=== PATIENT | female | born 1950 | race Caucasian/White ===

== ENCOUNTER 2017-02-13 17:07 | Emergency (ER) | payer BC ==
[2017-02-13] MEDS ORDERED: Aspirin Low Dose CHEW TAB* 81 MG PO ONE (18:06)
--- NOTE | 2017-02-13 18:09 | ED ---
HPI Chest Pain - HPI Summary HPI Summary: Pt here w/ flu-like sx since Thursday and chest pain on/off over past few weeks. Chest pain is intermittent over Lt chest - feels like squeezing/pinches at times - sometimes worse w/ lying flat. Denies associated sx of jaw pain, nausea , sweating however since Thursday she has had fatigue, decreased appetite, fever , general body aches and continues to have Lt sided chest pain. No SOB. Has had some cough and sneezing but this is improving - just feels wiped out and exhausted. Has not been eating or drinking much as she has not felt well. No h/ o cardiac issues and overall healthy person. Admits she did not get her influenza vaccine this year as last year she had a reaction where she had B/L breast lymphadenopathy w/ rash and felt exhausted for a 1 day. NOTE: she gardens in the summer - has had tick bites and tx'd w/ doxycycline - no EM rash, no previous dx of Lyme - History of Current Complaint Chief Complaint: EDGeneral Time Seen by Provider: 02/13/17 17:43 Hx Obtained From: Patient, Family/Shop Lead - Pain Intensity: 4 - Allergy/Home Medications Allergies/Adverse Reactions: Allergies Allergy/AdvReac Type Severity Reaction Status Date / Time No Known Allergies Allergy Verified 08/17/12 15:54 Home Medications: Home Medications PARoxetine HCL TAB* [Paxil TAB*] 10 mg PO DAILY 02/13/17 [History Confirmed ] traZODone TAB* [Desyrel TAB*] 50 mg PO BEDTIME 02/13/17 [History Confirmed 02/13] PMH/Surg Hx/FS Hx/Imm Hx Previously Healthy: Yes Endocrine/Hematology History: Reports: Other Endocrine/Hematological Disorders - has routine breast exams - no issues to report Denies: Hx Diabetes, Hx Systemic Lupus Erythematosus, Hx Thyroid Disease, Hx Anemia, Autoimmune Disease Cardiovascular History: Denies: Hx Aneurysm, Hx Atrial Fibrillation, Hx Congenital Heart Disease, Hx Congestive Heart Failure, Hx Coronary Artery Disease, Hx Hypertension, Hx Myocardial Infarction, Hx Rheumatic Fever Respiratory History: Denies: Hx Asthma, Hx Pulmonary Embolism GI History: Denies: Hx Gastroesophageal Reflux Disease, Hx Ulcer Musculoskeletal History: Reports: Other Musculoskeletal History - Proximal fx to Lt humerus - has chronic achiness here - Surgical History Surgery Procedure, Year, and Place: 8-10 years ago right breast benign fibroglandular tissue removed. 40 years ago fibroadenoma removed right breast - Immunization History Immunizations Up to Date: Yes Infectious Disease History: No Infectious Disease History: Denies: Traveled Outside the [place] in Last 30 Days - Family History Known Family History: Positive: None - Social History Occupation: Employed Full-time - [employer] Lives: With Family Alcohol Use: None Hx Substance Use: No Substance Use Type: Reports: None Hx Tobacco Use: No Smoking Status (MU): Never Smoked Tobacco Review of Systems Positive: Fever, Chills, Fatigue Eyes: Negative Negative: Photophobia, Blurred Vision, Diplopia, Drainage, Erythema Negative: Sore Throat, Ear Ache, Nasal Discharge Positive: Chest Pain. Negative: Palpitations Positive: Cough. Negative: Shortness Of Breath Gastrointestinal: Other - decreased appetite Negative: Abdominal Pain, Vomiting, Diarrhea, Nausea Genitourinary: Negative Negative: burning, dysuria, discharge, frequency, flank pain, hematuria, incontinence, pain, urgency Positive: Arthralgia, Myalgia. Negative: Decreased ROM, Edema Negative: Rash, Bruising Positive: Weakness - generalized. Negative: Headache, Paresthesia, Numbness, Syncope, Slurred Speech Psychological: Normal All Other Systems Reviewed And Are Negative: Yes Physical Exam Triage Information Reviewed: Yes Vital Signs On Initial Exam: Initial Vitals Temp Pulse Resp BP Pulse Ox 98.5 F 97 18 102/60 95 02/13/17 17:21 02/13/17 17:21 02/13/17 17:21 02/13/17 17:21 02/13/17 17:21 Vital Signs Reviewed: Yes Appearance: Positive: Well-Appearing - appears mildly fatigued, No Pain Distress , Thin Skin: Positive: Warm, Dry - rash Head/Face: Positive: Normal Head/Face Inspection Eyes: Positive: Normal, EOMI, OVIDIO, Conjunctiva Clear - anicteric sclera. Negative: Conjunctiva Inflammed, Discharge ENT: Positive: Normal ENT inspection, Hearing grossly normal, Pharynx normal, TMs normal, Uvula midline. Negative: Nasal congestion, Nasal drainage, Tonsillar swelling, Tonsillar exudate, Trismus, Muffled voice, Sinus tenderness Neck: Positive: Supple, Nontender, No Lymphadenopathy Respiratory/Lung Sounds: Positive: Clear to Auscultation, Breath Sounds Present , Other - no axillary, humeral, thoracic or breast LN's palpated. Negative: Rales, Rhonchi, Wheezes Cardiovascular: Positive: Normal, RRR, Pulses are Symmetrical in both Upper and Lower Extremities, S1, S2. Negative: Murmur, Rub, Leg Edema Left, Leg Edema Right Abdomen Description: Positive: Nontender, No Organomegaly, Soft. Negative: CVA Tenderness (R), CVA Tenderness (L) Bowel Sounds: Positive: Present Musculoskeletal: Positive: Strength/ROM Intact, Other - Lt chest with mild TTP Neurological: Positive: Normal, Sensory/Motor Intact, Alert, Oriented to Person Place, Time, CN Intact II-III, Reflexes Intact Psychiatric: Positive: Normal - Guillaume Coma Scale Coma Scale Total: 15 Diagnostics - Vital Signs Vital Signs Temp Pulse Resp BP Pulse Ox 02/13/17 17:21 98.5 F 97 18 102/60 95 - Laboratory Result Diagrams: 02/13/17 17:50 02/13/17 17:50 Lab Statement: Any lab studies that have been ordered have been reviewed, and results considered in the medical decision making process. Re-Evaluation - Re-Evaluation First Eval Change: Improved - reduced arthralgias and no retun of fever w/ ASA Chest Pain Course/Dx - Course Course Of Treatment: Pt presents w/ flu-like sx since Thursday - general achiness , fatigue, mild URI sx. Here to confirm if she has flu or not. Also reports intermittent Lt sided chest pain over the past few weeks. No cardiac hx. Labs reveal influenza B - vitals are WNL so IV fluids and additional medications were not ordered. Her ECG, CXR and trops x 2 were all WNL, neg for acute cardiac pathology. It was discussed that this could be JHONY as she has an old injury in her Lt humerus. She also reports breast/chest lymphadenopathy w/ rash after influenza vaccine last year - not sure if this is immune reaction since she actually has the flu now however it's unilateral and no LN's are palpated so liklihood is low. She is tolerating PO fluids while here w/o zofran. Advised to f/u w/ PCP if chest pain persists as she may benefit from further w/u. Also reviewed danger s/sx of when to return to ED. Pt and agree w/ plan. - Diagnoses Provider Diagnoses: Influenza B, Chest pain of unknown etiology Discharge - Discharge Plan Condition: Stable Disposition: HOME Patient Education Materials: Influenza (ED), Chest Wall Pain (ED) Referrals: Jadiel Glaser MD [Primary Care Provider] - Additional Instructions: You appear to have the flu which is most likely causing your fatigue, achiness and intermittent fevers. It is important that you rest, stay hydrated and try to stay nourished with broth, juice, etc. You may alternate ibuprofen and acetaminophen for pain, fever. You are contagious so avoid others as much as possible. If symptoms persist beyonf 14 days or settle into an area of your body (ie, ear pain, sinus pain/pressure, etc) follow-up with PCP for re- evaluation. *If you develop worsening of fatigue, increased heart rate, chest pain, shortness of breath or difficulty breathing, abdominal pain, vomiting, lack of urination or pain, severe headache with neck pain or stiffness, return to ED Your chest pain does not appear to be cardiac in nature after tests today however it is important that you follow-up with your PCP if symptoms persist. Call Thursday to schedule an appointment.
[2017-02-13 18:19] LABS: Hematocrit 37 % (35-47); Hemoglobin 12.3 g/dl (12.0-16.0); Mean Corpuscular HGB Conc 34 g/dl (31-36); Mean Corpuscular Hemoglobin 30 pg (27-31); Mean Corpuscular Volume 88 fL (80-97); Mean Platelet Volume 8 um3 (7.4-10.4); Red Blood Count 4.15 10^6/ul (4.0-5.4); Red Cell Distribution Width 14 % (10.5-15); White Blood Count 3.3 10^3/ul (3.5-10.8)
[2017-02-13 18:22] LABS: Add Diff/Slide Review? Slide Review Added; Comments Flag Yes
[2017-02-13 18:33] LABS: Albumin 3.9 g/dL (3.2-5.2); BUN/Creatinine Ratio 19.1 (8-20); Calcium 8.7 mg/dL (8.6-10.3); EGFR African American 76.4 (>60); EGFR Non-African American 59.4 (>60); Globulin 2.5 g/dL (2-4); Magnesium 1.7 mg/dL (1.9-2.7); Potassium 3.7 mmol/L (3.5-5.0); Total Bilirubin 0.4 mg/dL (0.2-1.0); Total Protein 6.4 g/dL (6.4-8.9)
--- NOTE | 2017-02-13 18:36 | RAD ---
INDICATION: Cough. Left-sided chest pain COMPARISON: July 28, 2002 TECHNIQUE: PA and lateral dual-energy views were obtained. FINDINGS: Bones/Soft Tissues: There are no acute bony findings. Cardiomediastinal: The cardiomediastinal silhouette is normal. Lungs: There are no infiltrates. Pleura: There are no pleural effusions. Other: None IMPRESSION: NO ACTIVE DISEASE.
[2017-02-13 18:52] LABS: TSH (Thyroid Stimulating Horm) 0.66 mcIU/mL (0.34-5.60)
[2017-02-13 22:28] VITALS: BP 104/66
== END 2017-02-13 22:28 | disposition home or self-care (01) ==
LOC: ED 17:07
DX: J11.1 Influenza due to unidentified influenza virus with other respiratory manifestations (principal); R07.9 Chest pain, unspecified
CPT/HCPCS: 36415; 71020; 80053; 83605; 83735; 84443; 84484; 85025; 86803; 87502; 93005; 99283; A9270-GY